=== PATIENT | male | born 1940 | race Caucasian/White ===

== ENCOUNTER 2020-05-31 10:30 | Inpatient (IN) | payer OTHER ==
[2020-05-31] MEDS ORDERED: ONDANSETRON 4 MG/2 ML VIAL ONE ×2 (14:28→16:38)
[2020-05-31] MEDS ORDERED: NA CHLORIDE 0.9% 500 ML ONE (14:28)
[2020-05-31] MEDS ORDERED: MORPHINE 2 MG/ML SYR ONE ×2 (14:28→16:38)
[2020-05-31] MEDS ORDERED: FAMOTIDINE 20 MG/2 ML VIAL IV ONE (14:29)
[2020-05-31 14:31] LABS: Absolute Lymphocytes (CBC) 0.9 K/uL (0.7-4.9); Basophils % 0.2 % (0-1.3); Hematocrit 45.4 % (39.6-49.0); Lymphocytes % 11.7 % (15.3-44.8); MPV 7.8 fL (7.6-11.3); RBC Red Blood Cell Count 5.46 M/uL (4.33-5.43)
[2020-05-31 14:50] LABS: Albumin 4.3 g/dL (3.4-5.0); Bilirubin Direct 0.2 mg/dL (0-0.2); Bilirubin Total 0.7 mg/dL (0.2-1.0); Potassium 3.6 mmol/L (3.5-5.1); Protein, Total 8.2 g/dL (6.4-8.2)
--- NOTE | 2020-05-31 15:17 | RAD REPORT ---
EXAM DESCRIPTION: RAD - Chest Single View - 05/31/2020 2:39 pm CLINICAL HISTORY: ABDOMINAL DISTENTION Chest pain. COMPARISON: CHEST PA AND LAT 2 VIEW dated 09/20/2006 FINDINGS: Portable technique limits examination quality. The lungs are grossly clear. The heart is normal in size. Old left posterior rib fractures. IMPRESSION: No acute intrathoracic process suspected.
--- NOTE | 2020-05-31 15:46 | RAD REPORT ---
EXAM DESCRIPTION: CTAbdomen Pelvis W Contrast - 05/31/2020 3:30 pm CLINICAL HISTORY: Abdominal pain. Abd pain;Abdominal distention COMPARISON: No comparisons TECHNIQUE: Biphasic CT imaging of the abdomen and pelvis was performed with 100 ml non-ionic IV cont rast. All CT scans are performed using dose optimization technique as appropriate and may include automated exposure control or mA/KV adjustment according to patient size. FINDINGS: Mild linear subsegmental atelectasis is seen in both lung bases posteriorly. The liver contains a small cyst in the left lobe. No aggressive liver lesion or biliary dilatation. T he spleen, pancreas, adrenal glands are within normal limits. Small renal calculi are present bilater ally, largest in the inferior right kidney measuring 9 mm. Several mildly dilated small bowel loops are present in the right lower abdomen. The most dilated loo p of small bowel measures 5.5 cm in dimension. There is mild edema seen within the small bowel mesent farhana. Appendectomy suspected. Small volume of free fluid is seen in the pelvis. No free air or abscess . No evidence of significant lymphadenopathy. No suspicious bony findings. IMPRESSION: Multiple fluid-filled and mildly dilated small bowel loops are present. This may be rela silvana to infectious/enteritis, however early bowel obstruction cannot be ruled out. Suggest follow-up radiographs in 24-48 hours. Nephrolithiasis bilaterally without hydronephrosis.
--- NOTE | 2020-05-31 16:06 | EDPHYS ---
Physician Documentation [facility] Name: Benji Machuca Sr Age: 79 yrs Sex: Male : 1940 Arrival Date: 05/31/2020 Time: 10:33 Bed 2 Private MD: Jose M Bauer HPI: 05/31 13:55 This 79 yrs old Male presents to ER via Ambulatory with complaints of cp Abdominal Pain. 13:55 The patient presents with abdominal pain that is diffuse, abdominal distention that is cp diffuse. Onset: The symptoms/episode began/occurred gradually. Associated signs and symptoms: Pertinent positives: anorexia, constipation, nausea, vomiting, Pertinent negatives: chest pain, diarrhea, fever, testicular pain, vomiting blood. 13:55 The symptoms do not radiate. cp 13:55 The symptoms are described as steady. cp Historical: - Allergies: 10:45 No Known Allergies; ss - PMHx: 10:45 Hypertension; GERD; Anxiety; CA outside the kidneys; ss - PSHx: 10:45 abd sx-piece of intestine removed; Appendectomy; ss - Immunization history:: Client reports receiving the 2nd dose of the Covid vaccine, Flu vaccine is up to date. - Social history:: Smoking status: Patient denies any tobacco usage or history of. ROS: 13:57 Constitutional: Negative for body aches, chills, fever. cp 13:57 Abdomen/GI: Positive for abdominal pain, nausea and vomiting, constipation, abdominal distension, anorexia. Exam: 14:05 Constitutional: The patient appears in no acute distress, alert, awake, cp non-diaphoretic, non-toxic, well developed, well nourished. 14:05 Head/Face: Normocephalic, atraumatic. cp 14:05 Eyes: Periorbital structures: appear normal, Conjunctiva: normal, no exudate, no injection, Sclera: no appreciated abnormality, Lids and lashes: appear normal, bilaterally. 14:05 ENT: External ear(s): are unremarkable, Nose: is normal, Mouth: Lips: moist, Posterior pharynx: Airway: no evidence of obstruction, patent. 14:05 Neck: ROM/movement: is normal, is supple, without pain, no range of motions limitations. 14:05 Chest/axilla: Inspection: normal, Palpation: is normal, no crepitus, no tenderness. 14:05 Cardiovascular: Rate: normal, Rhythm: regular, Edema: is not appreciated, JVD: is not appreciated. 14:05 Respiratory: the patient does not display signs of respiratory distress, Respirations: normal, no use of accessory muscles, no retractions, labored breathing, is not present, Breath sounds: are clear throughout, no decreased breath sounds. 14:05 Abdomen/GI: Inspection: scar(s), are noted in the mid line mid and lower abdomen, Bowel sounds: active, all quadrants, Palpation: soft, in all quadrants, moderate abdominal tenderness, in all quadrants, rebound tenderness, is not appreciated, involuntary guarding, is not appreciated, Hernia: not appreciated. 14:05 Skin: no rash present. Vital Signs: 10:40 BP 138 / 79; Pulse 76; Resp 17; Temp 97.2; Pulse Ox 97% on R/A; Weight 86.18 kg; Height ss 5 ft. 11 in. (180.34 cm); Pain 10/10; 16:49 BP 135 / 84; Pulse 81; Resp 16; Pulse Ox 98% on R/A; mt 17:00 BP 136 / 86; Pulse 80; Resp 17; Pulse Ox 97% on R/A; hb 18:00 BP 149 / 88; Pulse 84; Resp 16; Pulse Ox 96% ; sv 19:29 BP 114 / 66; Pulse 85; Resp 18; Pulse Ox 100% on R/A; mg2 10:40 Body Mass Index 26.50 (86.18 kg, 180.34 cm) ss MDM: 05/30 14:00 Differential diagnosis: bowel obstruction, cholecystitis, Cholelithiasis, non-specific cp abd pain, pancreatitis. 05/31 13:36 Patient medically screened. cp 16:01 Data reviewed: vital signs, nurses notes, lab test result(s), radiologic studies, CT cp scan, plain films. Physician consultation: Holden Riojas MD was called at 15:45, was contacted at 15:45, regarding consult, patient's condition. 16:03 Physician consultation: Andi Alvarado was contacted at 16:03, regarding admission, to the medical/surgical unit. patient's condition, and will see patient in ED. 05/31 13:47 Order name: Basic Metabolic Panel; Complete Time: 14:57 cp 05/31 15:58 Interpretation: Normal except: GLUC 123; GFR 66; Reviewed. 05/31 13:47 Order name: CBC with Diff; Complete Time: 14:38 05/31 14:38 Interpretation: Normal except: RBC 5.46; HANS% 78.9; LYM% 11.7. 05/31 13:47 Order name: Hepatic Function; Complete Time: 14:57 05/31 14:58 Interpretation: Normal except: AST 11; GLOB 3.9. 05/31 13:47 Order name: Lipase; Complete Time: 14:57 05/31 13:47 Order name: Urine Microscopic Only 05/31 16:25 Order name: COVID-19 : Document "Date of Symptom Onset" if Symptomatic. 05/31 13:47 Order name: CT Abd/Pelvis - PO and IV Contrast; Complete Time: 15:47 05/31 13:56 Order name: XRAY Chest (1 view); Complete Time: 15:47 05/31 18:21 Order name: SARS-COV-2 RT PCR EDSD 05/31 13:47 Order name: IV Saline Lock; Complete Time: 16:31 05/31 13:47 Order name: Labs collected and sent; Complete Time: 16:31 05/31 16:00 Order name: NG Tube; Complete Time: 18:09 cp Administered Medications: 14:31 Drug: morphine 2 mg Route: IVP; Site: right antecubital; hb 14:31 Drug: NS 0.9% 500 ml Route: IV; Rate: 500 ml/hr; Site: right antecubital; hb 14:32 Drug: Zofran (Ondansetron) 4 mg Route: IVP; Site: right antecubital; hb 14:32 Drug: Pepcid (famotidine) 20 mg Route: IVP; Site: right antecubital; hb 16:29 Drug: metroNIDAZOLE 500 mg Volume: 100 ml; Route: IVPB; Infused Over: 30 mins; Site: hb right antecubital; 16:29 Drug: Zofran (Ondansetron) 4 mg Route: IVP; Site: right antecubital; hb 16:30 Drug: morphine 2 mg Route: IVP; Site: right antecubital; hb 16:30 Drug: LevaQUIN (levofloxacin) 750 mg Volume: 150 ml; Route: IVPB; Infused Over: 90 hb mins; Site: right antecubital; 18:08 Drug: morphine 4 mg Route: IVP; Site: right antecubital; hb Disposition: 16:19 Chart complete. cp 06/01 08:04 Co-signature as Attending Physician, Jose M Garland MD I agree with the assessment and sherlyn plan of care. Disposition: 05/31/20 16:06 Hospitalization ordered by Andi Alvarado for Inpatient Admission. Preliminary diagnosis is Ileus, unspecified. - Bed requested for Telemetry/MedSurg (Inpatient). - Status is Inpatient Admission. mg2 - Condition is Stable. - Problem is new. - Symptoms have improved. Signatures: Dispatcher [employer] EDSD Edwige Nicole RN RN dw Anderson, Corey, MD MD cha Smirch, Shelby RN RN Jose M Mora PA PA cp Loreta Bey RN RN Zachariah Thompson RN RN mg2 Corrections: (The following items were deleted from the chart) 05/31 15:58 14:58 Normal except: GLUC 123; GFR 66. cp cp 17:40 16:26 CORONAVIRUS ordered. EDSD EDMS 19:27 16:06 Hospitalization Ordered by Andi Alvarado for Inpatient Admission. Preliminary dw diagnosis is Ileus, unspecified. Bed requested for Telemetry/MedSurg (Inpatient). Status is Inpatient Admission. Condition is Stable. Problem is new. Symptoms have improved. cp 19:50 19:27 05/31/2020 16:06 Hospitalization Ordered by Andi Alvarado for Inpatient mg2 Admission. Preliminary diagnosis is Ileus, unspecified. Bed requested for Telemetry/MedSurg (Inpatient). Status is Inpatient Admission. Condition is Stable. Problem is new. Symptoms have improved. dw
--- NOTE | 2020-05-31 16:06 | ER ---
Nurse's Notes [facility] Name: Benji Machuca Sr Age: 79 yrs Sex: Male : 1940 Arrival Date: 05/31/2020 Time: 10:33 Bed 2 Private MD: Diagnosis: Ileus, unspecified Presentation: 05/31 10:40 Chief complaint: Patient states: Generalized abd pain with bloating for 2 days. + ss nausea. No fever. Normal BM per patient. Coronavirus screen: Client denies travel out of the [place] in the last 14 days. nausea. Ebola Screen: Patient denies travel to an Ebola-affected area in the 21 days before illness onset. Initial Sepsis Screen: Does the patient meet any 2 criteria? No. Patient's initial sepsis screen is negative. Does the patient have a suspected source of infection? Yes: Acute abdominal pain. Risk Assessment: Do you want to hurt yourself or someone else? Patient reports no desire to harm self or others. Onset of symptoms was May 29, 2020. 10:40 Method Of Arrival: Ambulatory ss 10:40 Acuity: SALOMÓN 3 ss Historical: - Allergies: 10:45 No Known Allergies; ss - PMHx: 10:45 Hypertension; GERD; Anxiety; CA outside the kidneys; ss - PSHx: 10:45 abd sx-piece of intestine removed; Appendectomy; ss - Immunization history:: Client reports receiving the 2nd dose of the Covid vaccine, Flu vaccine is up to date. - Social history:: Smoking status: Patient denies any tobacco usage or history of. Screenin:10 Abuse screen: Denies threats or abuse. Denies injuries from another. Nutritional hb screening: No deficits noted. Tuberculosis screening: No symptoms or risk factors identified. Fall Risk None identified. Assessment: 14:00 General: Appears in no apparent distress. uncomfortable. Pain: Pain currently is 7 out hb of 10 on a pain scale. Neuro: Level of Consciousness is awake, alert, obeys commands, Oriented to person, place, time, situation. Cardiovascular: Patient's skin is warm and dry. Respiratory: Respiratory effort is even, unlabored, Respiratory pattern is regular, symmetrical. GI: Reports lower abdominal pain, upper abdominal pain, nausea, vomiting. : No signs and/or symptoms were reported regarding the genitourinary system. EENT: No signs and/or symptoms were reported regarding the EENT system. Derm: Skin is pink, warm \T\ dry. Musculoskeletal: No signs and/or symptoms reported regarding the musculoskeletal system. 15:00 Reassessment: Patient appears in no apparent distress at this time. Patient and/or hb family updated on plan of care and expected duration. Pain level reassessed. Patient is alert, oriented x 3, equal unlabored respirations, skin warm/dry/pink. 16:00 Reassessment: Patient appears in no apparent distress at this time. Patient and/or hb family updated on plan of care and expected duration. Pain level reassessed. Patient is alert, oriented x 3, equal unlabored respirations, skin warm/dry/pink. 17:00 Reassessment: Patient appears in no apparent distress at this time. Patient and/or hb family updated on plan of care and expected duration. Pain level reassessed. Patient is alert, oriented x 3, equal unlabored respirations, skin warm/dry/pink. 18:09 Reassessment: Patient appears in no apparent distress at this time. Patient and/or hb family updated on plan of care and expected duration. Pain level reassessed. Patient is alert, oriented x 3, equal unlabored respirations, skin warm/dry/pink. 18:55 Reassessment: Patient appears in no apparent distress at this time. Patient and/or hb family updated on plan of care and expected duration. Pain level reassessed. Patient is alert, oriented x 3, equal unlabored respirations, skin warm/dry/pink. Vital Signs: 10:40 BP 138 / 79; Pulse 76; Resp 17; Temp 97.2; Pulse Ox 97% on R/A; Weight 86.18 kg; Height ss 5 ft. 11 in. (180.34 cm); Pain 10/10; 16:49 BP 135 / 84; Pulse 81; Resp 16; Pulse Ox 98% on R/A; mt 17:00 BP 136 / 86; Pulse 80; Resp 17; Pulse Ox 97% on R/A; hb 18:00 BP 149 / 88; Pulse 84; Resp 16; Pulse Ox 96% ; sv 19:29 BP 114 / 66; Pulse 85; Resp 18; Pulse Ox 100% on R/A; mg2 10:40 Body Mass Index 26.50 (86.18 kg, 180.34 cm) ED Course: 10:33 Patient arrived in ED. ds1 10:40 Arm band placed on. ss 10:43 Triage completed. ss 13:34 Jose M Mora PA is PHCP. cp 13:34 Jose M Galrand MD is Attending Physician. cp 14:18 Inserted saline lock: 20 gauge in right antecubital area, using aseptic technique. hb Blood collected. 14:31 Loreta Bey, RN is Primary Nurse. hb 14:39 XRAY Chest (1 view) In Process Unspecified. EDMS 15:30 CT Abd/Pelvis - PO and IV Contrast In Process Unspecified. EDMS 16:05 Andi Alvarado is Hospitalizing Provider. cp 18:00 NGT: inserted 16 Fr. via right nare. verified placement of air over stomach, verified hb return of gastric contents, to intermittent suction. Returned gastric contents. Amount of gastric contents removed by suction 700ml. Patient tolerated well. 19:37 Patient has correct armband on for positive identification. Door closed. Warm blanket mg2 given. 19:37 No provider procedures requiring assistance completed. Patient admitted, IV remains in mg2 place. Administered Medications: 14:31 Drug: morphine 2 mg Route: IVP; Site: right antecubital; hb 14:31 Drug: NS 0.9% 500 ml Route: IV; Rate: 500 ml/hr; Site: right antecubital; hb 14:32 Drug: Zofran (Ondansetron) 4 mg Route: IVP; Site: right antecubital; hb 14:32 Drug: Pepcid (famotidine) 20 mg Route: IVP; Site: right antecubital; hb 16:29 Drug: metroNIDAZOLE 500 mg Volume: 100 ml; Route: IVPB; Infused Over: 30 mins; Site: hb right antecubital; 16:29 Drug: Zofran (Ondansetron) 4 mg Route: IVP; Site: right antecubital; hb 16:30 Drug: morphine 2 mg Route: IVP; Site: right antecubital; hb 16:30 Drug: LevaQUIN (levofloxacin) 750 mg Volume: 150 ml; Route: IVPB; Infused Over: 90 hb mins; Site: right antecubital; 18:08 Drug: morphine 4 mg Route: IVP; Site: right antecubital; hb Outcome: 16:06 Decision to Hospitalize by Provider. cp 19:37 Admitted to Med/surg accompanied by nurse, via wheelchair, room 229, with chart, Report mg2 called to GEORGETTE Cosby 19:37 Condition: stable 19:37 Instructed on the need for admit, Demonstrated understanding of instructions. 19:50 Patient left the ED. mg2 Signatures: Dispatcher [employer] EDOlivia Church, GEORGETTE PALOMINO Lisandra Rodriguez ds1 Larisa Singh RN RN ss Jose M Mora, ORQUIDEA PA cp Loreta Bey, RN RN Ricarda Wong mt, Michele, RN RN mg2
[2020-05-31] MEDS ORDERED: Levofloxacin 750mg IV 750 MG/150 ML BAG IV ONE (16:38)
[2020-05-31] MEDS ORDERED: METRONIDAZOLE 500mg IVPB 500 MG/100 ML BAG IV ONE (16:38)
--- NOTE | 2020-05-31 17:33 | P.HP ---
Certification for Inpatient Patient admitted to: Inpatient With expected LOS: >2 Midnights Practitioner: I am a practitioner with admitting privileges, knowledge of patient current condition, hospital course, and medical plan of care. Services: Services provided to patient in accordance with Admission requirements found in Title 42 Section 412.3 of the Code of Federal Regulations Patient History Date of Service: 05/31/20 Reason for admission: Abdominal pain and bloating History of Present Illness: 79-year-old gentleman with a history multiple abdominal surgeries in the past, history small bowel obstruction with resection and end-to-end anastomosis, history of nephrectomy for renal cancer presented to the emergency department with a complaint of abdominal pain and bloating of 2 days duration. Patient reports worsening symptoms since last night, not tolerating food and drink. He reports a few episodes of vomiting. He vomited in the ED. CT abdomen in the ED reports multiple fluid-filled and mildly dilated small bowel loops indicative of early bowel obstruction. General surgery Dr. Riojas was contacted who recommended NGT insertion and a consult from him. Patient admitted for further management. Allergies No Known Allergies Allergy (Verified 01/03/12 09:06) - Past Medical/Surgical History -: Hypertension -: GERD -: History of renal cancer -: Small-bowel resection -: Cancer resection from the right kidney. - Family History Father -: Hypertension - Social History Smoking Status: Never smoker Alcohol use: Yes CD- Drugs: No Place of Residence: Home Review of Systems Other: Patient denies any fever. He reports diarrhea a few days before onset of his abdominal pain. Except as documented, all other systems reviewed and negative. Physical Examination - Physical Exam General: Alert, In no apparent distress, Oriented x3 HEENT: Atraumatic, Normocephalic, PERRLA, Mucous membr. moist/pink, EOMI, Sclerae nonicteric Neck: Supple, JVD not distended Respiratory: Clear to auscultation bilaterally, Normal air movement Cardiovascular: No edema, Regular rate/rhythm, Normal S1 S2, No murmurs Capillary refill: <2 Seconds Gastrointestinal: Normal bowel sounds, Soft and benign, No tenderness, Distended (Mildly distended) Musculoskeletal: No swelling, No tenderness Integumentary: No rashes, No erythema Neurological: Normal speech, Normal strength at 5/5 x4 extr, Cranial nerves 3-12 intact - Studies Laboratory Data (last 24 hrs) 05/31/20 14:22: WBC 7.60, Hgb 15.0, Hct 45.4, Plt Count 195 05/31/20 14:22: Sodium 139, Potassium 3.6, BUN 15, Creatinine 1.08, Glucose 123 H, Total Bilirubin 0.7, AST 11 L, ALT 23, Alkaline Phosphatase 87, Lipase 79 Assessment and Plan - Problems (Diagnosis) (1) Partial small bowel obstruction Current Visit: Yes Status: Acute (2) History of bowel resection Current Visit: Yes Status: Acute (3) Hypertension Current Visit: Yes Status: Acute (4) GERD (gastroesophageal reflux disease) Current Visit: Yes Status: Acute - Plan Admit to the medical floor. Supportive measures with IV normal saline. NG-tube to suction Consult general surgeon-Dr. Riojas is aware. Empiric IV Zosyn Serial abdominal examination. Monitor renal function and CBC. Pain management and antiemetics as needed. - Advance Directives Does patient have a Living Will: No Does patient have a Durable POA for Healthcare: No
[2020-05-31] MEDS ORDERED: MORPHINE 4 MG/ML SYR ONE (18:24)
[2020-05-31] MEDS ORDERED: ONDANSETRON 4 MG/2 ML VIAL IV PRN (20:03)
[2020-05-31] MEDS ORDERED: PIPER/TAZO/NS 3.375gm 3.375 GM/100 ML BAG IVPB ONE (20:15)
[2020-05-31] MEDS: D5 0.9 NS 1,000 ML IV SCH (20:32)
[2020-05-31] MEDS ORDERED: NA CHLORIDE 0.9% 100 ML ONE (22:33)
[2020-05-31] MEDS ORDERED: PIPERACIL/TAZO 3.375 GM VIAL IV ONE (22:33)
[2020-05-31] MEDS ORDERED: PIPER/TAZO/NS 3.375gm 6.750 GM/200 ML BAG ONE (22:38)
[2020-06-01] MEDS: HEPARIN 5000 UNIT/ML 1 ML VIAL SQ SCH ×3 (00:52→16:18)
[2020-06-01] MEDS: PIPER/TAZO/NS 3.375gm 3.375 GM/100 ML BAG IVPB SCH ×4 (00:53→17:00)
[2020-06-01 01:50] VITALS: BMI 26.4
[2020-06-01] MEDS ORDERED: PIPERACIL/TAZO 3.375 GM VIAL IV ONE (05:24)
[2020-06-01] MEDS ORDERED: NA CHLORIDE 0.9% 100 ML ONE (05:25)
[2020-06-01 05:57] LABS: Absolute Lymphocytes (CBC) 0.9 K/uL (0.7-4.9); Basophils % 0.3 % (0-1.3); Hematocrit 40.5 % (39.6-49.0); Lymphocytes % 18.3 % (15.3-44.8)
[2020-06-01 06:26] LABS: Albumin 3.4 g/dL (3.4-5.0); Bilirubin Total 0.8 mg/dL (0.2-1.0); Magnesium 2.1 mg/dL (1.8-2.4); Potassium 3.6 mmol/L (3.5-5.1); Protein, Total 6.7 g/dL (6.4-8.2); Thyroid Stimulating Hormone 1.01 uIU/mL (0.360-3.740)
[2020-06-01] MEDS ORDERED: POTASSIUM PHOS 30 MM in NS 500 ML IV ONE (08:00)
[2020-06-01] MEDS: D5 0.9 NS 1,000 ML IV SCH ×2 (08:59→15:41)
[2020-06-01 09:02] LABS: Blood Morphology Comment NOT SEEN (NOT SEEN); Platelet Estimate ADEQ
--- NOTE | 2020-06-01 12:43 | CON ---
Date of Consultation: 06/01/2020 Brief History Of Present Illness: The patient is an 79-year-old gentleman with history of multiple abdominal surgeries in the past including renal cell cancer status post partial nephrectomy and small bowel obstructions before in the past requiring adhesiolysis and a small bowel resection. He presented to the emergency room with complaints of abdominal pain and bloating for approximately 2 days' duration, similar to his bowel obstructions in the past. He reported the symptoms got progressively worse, he was unable to tolerate p.o., he had decreased bowel function and as such, he was brought to the hospital for the above stated complaints. Past Medical History: Significant for hypertension, GERD, renal cell cancer, small bowel obstructions and right renal cell cancer. Past Surgical History: Includes a partial nephrectomy on the right, small bowel resection for obstruction, appendectomy, partial colectomy for appendicitis in the past. Social History: He denies smoking. He drinks alcohol recreationally. Denies recreational drug use. Allergies: NO KNOWN DRUG ALLERGIES. Home Medications: Included BuSpar, gabapentin, Zestril, meloxicam, Naprosyn, omeprazole, and trazodone. Review of Systems: Ten-point review of systems other than HPI, denies. Physical Examination: Vital Signs: At the time of my examination; his blood pressure was 129/67, pulse 73, respiratory rate 18, temperature is 97.2, SpO2 95% on room air. General: He is awake, alert, and oriented. The patient was ambulatory during my conversation with him in the room. Psychiatric: He is appropriate. Conversive. Has good insight to his past medical history. HEENT: He is normocephalic. His sclerae were anicteric. His mucous membranes were somewhat dry. He has NG tube in place. Neck: Supple without JVD. Chest: Normal expansion and excursion. Cardiovascular: Regular rate and rhythm. Pulmonary: Clear to auscultation bilaterally. Abdomen: Soft with mild global tenderness to palpation. He has a midline incisional hernia in the periumbilical region. He also has abdominal wall laxity on the right side where as previous nephrectomy scar is. He has no rebound, no guarding, no focal peritonitis. Extremities: His extremities have no clubbing, cyanosis, edema. Skin: Warm and dry. Laboratory Data: Reveals a white blood count of 4.8, hemoglobin 13.3, hematocrit of 40.5, platelet count is 168. His neutrophils were 63%. His sodium is 141, potassium 3.6, chloride 109, carbon dioxide 27, BUN 13, creatinine 1.07, glucose is 107, calcium 8.7, phosphorus 2.0, magnesium 2.1. His total bilirubin is 0.8, direct bilirubin 0.2, AST 11, ALT 20, alkaline phosphatase 68. His lipase is 76 on admission. He had imaging performed, which included a CT scan of the abdomen and pelvis, which was officially read as multiple fluid-filled and mildly dilated small bowel loops are present. This may be related to infectious enteritis; however, early bowel obstruction cannot be ruled out. Nephrolithiasis bilaterally without hydronephrosis, liver contains multiple cysts, spleen and pancreas normal limits. Small renal calculi present bilaterally, largest inferior right kidney measured 9 mm, several mildly dilated small bowel loops are present in the right lower abdomen. The most dilated loop of small bowel measures 5.5 cm in dimension. There was mild edema within the small bowel mesentery. Appendectomy, suspected small volume of free fluid seen in the pelvis. No free air abscess. No evidence of significant lymphadenopathy. Assessment And Plan: This is an 79-year-old male, who presents with signs and symptoms of an enteritis versus early small bowel obstruction. 1. IV fluid hydration. 2. Serial abdominal exams. 3. NG tube decompression. 4. I do not find that the patient has any active need for emergency surgery at this point and as such, I recommend continued medical management per Dr. Alvarado, electrolyte correction, and I will evaluate the patient with serial exams. Should he have non-progression of his symptoms, we will consider surgery, but we will continue to re-image and do serial exams prior to any surgical intervention. I have explained the risks, benefits, and alternatives of above stated plan. The patient agrees to proceed as indicated. Thank you for this interesting consult. PAOLA/MADDISON Voice ID: [id number] Report ID: [id number] NAREN
--- NOTE | 2020-06-01 14:47 | P.PN ---
Subjective Date of Service: 06/01/20 Chief Complaint: Abdominal pain and bloating Patient states he feels better today. He stated he passed flatus. No bowel movement. Noted about 700 mL of fluid was drained when the NG tube was 1st inserted yesterday. Not much output overnight. She denies any abdominal pain. He is ambulating in the room without pain. Physical Examination - Vital Signs Temperature: 97.3 F Blood Pressure: 133/63 Pulse: 66 Respirations: 18 Pulse Ox (%): 95 - Physical Exam General: Alert, In no apparent distress, Oriented x3 HEENT: Other (NG-tube to suction) Neck: Supple, JVD not distended Respiratory: Clear to auscultation bilaterally, Normal air movement Cardiovascular: No edema, Regular rate/rhythm, Normal S1 S2 Gastrointestinal: Soft and benign, No tenderness, Hyperactive, Distended Musculoskeletal: No swelling, No tenderness Integumentary: No rashes, No erythema Neurological: Normal speech, Normal strength at 5/5 x4 extr, Cranial nerves 3-12 intact - Studies Laboratory Data (last 24 hrs) 05/31/20 14:22: Sodium 139, Potassium 3.6, BUN 15, Creatinine 1.08, Glucose 123 H, Total Bilirubin 0.7, AST 11 L, ALT 23, Alkaline Phosphatase 87, Lipase 79 Assessment And Plan - Current Problems (Diagnosis) (1) Partial small bowel obstruction Current Visit: Yes Status: Acute (2) History of bowel resection Current Visit: Yes Status: Acute (3) Hypertension Current Visit: Yes Status: Acute (4) GERD (gastroesophageal reflux disease) Current Visit: Yes Status: Acute - Plan Continue supportive measures with IV normal saline. Continue NG-tube to suction General surgeon-Dr. Riojas input appreciated. Medical management for now Continue empiric IV Zosyn Serial abdominal examination and imaging. Monitor renal function and optimize electrolytes. Pain management and antiemetics as needed. Activity as tolerated. Keep NPO
[2020-06-01] MEDS: MORPHINE 2 MG/ML SYR IV PRN ×2 (16:40→21:15)
[2020-06-01] MEDS ORDERED: LORazepam 2 MG/ML VIAL IV ONE (22:07)
[2020-06-02] MEDS: D5 0.9 NS 1,000 ML IV SCH ×3 (01:03→22:22)
[2020-06-02] MEDS: HEPARIN 5000 UNIT/ML 1 ML VIAL SQ SCH ×3 (01:09→16:34)
[2020-06-02] MEDS: MORPHINE 2 MG/ML SYR IV PRN ×3 (04:01→11:46)
[2020-06-02 05:19] LABS: Absolute Lymphocytes (CBC) 1.1 K/uL (0.7-4.9); Basophils % 0.5 % (0-1.3); Hematocrit 37.9 % (39.6-49.0); Lymphocytes % 20.9 % (15.3-44.8); MPV 7.8 fL (7.6-11.3); RBC Red Blood Cell Count 4.59 M/uL (4.33-5.43)
[2020-06-02 05:28] LABS: Phosphorus 1.8 mg/dL (2.5-4.9); Potassium 3.4 mmol/L (3.5-5.1)
[2020-06-02] MEDS: PIPER/TAZO/NS 3.375gm 3.375 GM/100 ML BAG IVPB SCH ×4 (05:44→16:30)
[2020-06-02] MEDS ORDERED: KCL 20 MEQ/100 mL IVPB 20 MEQ/100 ML BAG IV SCH ×2 (07:00→08:00)
[2020-06-02] MEDS ORDERED: POTASSIUM PHOS IN 0.9 % NACL 15 MMOL/250 ML BAG IV ONE (07:30)
--- NOTE | 2020-06-02 10:27 | P.PN ---
Subjective Date of Service: 06/02/20 Chief Complaint: Abdominal pain and bloating Subjective: Improving (passing more gas, no pain, tenderness minimal.) Physical Examination - Vital Signs Temperature: 97.0 F Blood Pressure: 166/81 Pulse: 64 Respirations: 16 Pulse Ox (%): 96 - Physical Exam General: Alert, In no apparent distress, Oriented x3, Cooperative Neck: Supple Respiratory: Normal air movement Gastrointestinal: Soft and benign, Non-distended, No ascites, No tenderness, No masses, No rebound, No guarding, Other (ventral incisional hernias noted) Assessment And Plan - Current Problems (Diagnosis) (1) Partial small bowel obstruction Current Visit: Yes Status: Acute Plan: - DC NGT - start sips of clears - ambulate with assist - serial exams - continue medical management
--- NOTE | 2020-06-02 15:38 | P.PN ---
Subjective Date of Service: 06/02/20 Chief Complaint: Abdominal pain and bloating NG tube is out. Patient denies any symptoms He stated he has been passing flatus. He reports bowel movement yesterday. He is ambulating in the room without pain. Physical Examination - Vital Signs Temperature: 97.2 F Blood Pressure: 144/65 Pulse: 67 Respirations: 17 Pulse Ox (%): 96 - Physical Exam General: Alert, In no apparent distress HEENT: Mucous membr. moist/pink Neck: JVD not distended Respiratory: Clear to auscultation bilaterally, Normal air movement Cardiovascular: No edema, Regular rate/rhythm, Normal S1 S2 Gastrointestinal: Normal bowel sounds, Soft and benign, Non-distended, No tenderness Musculoskeletal: No swelling, No tenderness Integumentary: No rashes, No erythema Neurological: Normal speech, Normal strength at 5/5 x4 extr Assessment And Plan - Current Problems (Diagnosis) (1) Partial small bowel obstruction Current Visit: Yes Status: Acute (2) History of bowel resection Current Visit: Yes Status: Acute (3) Hypertension Current Visit: Yes Status: Acute (4) GERD (gastroesophageal reflux disease) Current Visit: Yes Status: Acute - Plan Patient feeling better NG tube is removed per Dr. Riojas. Patient started on sips Continue empiric IV Zosyn Serial abdominal examination. Monitor renal function and optimize electrolytes. Pain management and antiemetics as needed. Activity as tolerated.
[2020-06-02] MEDS ORDERED: POTASSIUM 25 MEQ EFFERV TAB PO ONE (21:57)
[2020-06-02] MEDS ORDERED: MELATONIN 5 MG TABLET PO PRN (23:04)
[2020-06-03] MEDS: HEPARIN 5000 UNIT/ML 1 ML VIAL SQ SCH ×3 (01:22→16:01)
[2020-06-03] MEDS: PIPER/TAZO/NS 3.375gm 3.375 GM/100 ML BAG IVPB SCH ×3 (01:22→17:33)
[2020-06-03 05:52] LABS: Magnesium 2.2 mg/dL (1.8-2.4); Phosphorus 1.8 mg/dL (2.5-4.9); Potassium 3.5 mmol/L (3.5-5.1)
[2020-06-03] MEDS ORDERED: POTASSIUM PHOS IN 0.9 % NACL 15 MMOL/250 ML BAG IV ONE (09:00)
--- NOTE | 2020-06-03 09:14 | P.PN ---
Subjective Date of Service: 06/03/20 Chief Complaint: Abdominal pain and bloating Subjective: Improving (Patient tolerated clears, having bowel movements, ambulatory) Physical Examination - Vital Signs Temperature: 97.9 F Blood Pressure: 153/78 Pulse: 64 Respirations: 17 Pulse Ox (%): 94 - Physical Exam General: Alert, In no apparent distress, Cooperative Respiratory: Normal air movement Gastrointestinal: Soft and benign, No tenderness, No masses, No rebound, No guarding Assessment And Plan - Current Problems (Diagnosis) (1) Partial small bowel obstruction Current Visit: Yes Status: Acute Plan: - advance to full liquid diet now, consider soft today, if tolerated can DC from surgical standpoint - ambulate with assist - serial exams - continue medical management
[2020-06-03] MEDS: D5 0.9 NS 1,000 ML IV SCH (09:55)
[2020-06-03 10:14] VITALS: O2SAT 96
[2020-06-03 16:33] VITALS: BP 165/85; TEMP 97.2
--- NOTE | 2020-06-04 22:01 | P.DS ---
Admission Date: 05/31/20 Discharge Date: 06/03/20 Disposition: ROUTINE DISCHARGE Discharge Condition: GOOD Reason for Admission: Abdominal pain and bloating Consultations: General Surgery - Dr. Riojas Procedures: CXR (05/31): No acute intrathoracic process suspected. CT Abd/ Pelvis (05/31): Multiple fluid-filled and mildly dilated small bowel loops are present. This may be related to infectious/enteritis, however early bowel obstruction cannot be ruled out. Nephrolithiasis bilaterally without hydronephrosis. Problem List: partial SBO h/o bowel resection HTN GERD Brief History of Present Illness: 79-year-old gentleman with a history multiple abdominal surgeries in the past, history small bowel obstruction with resection and end-to-end anastomosis, history of nephrectomy for renal cancer presented to the emergency department with a complaint of abdominal pain and bloating of 2 days duration. Patient reports worsening symptoms since last night, not tolerating food and drink. He reports a few episodes of vomiting. He vomited in the ED. CT abdomen in the ED reports multiple fluid-filled and mildly dilated small bowel loops indicative of early bowel obstruction. General surgery Dr. Riojas was contacted who recommended NGT insertion and a consult from him. Patient admitted for further management. Hospital Course: Patient's partial SBO was medically managed and his diet was slowly advanced as tolerated. General surgery was consulted and patient had eventual resolution of his symptoms - tolerating GI soft diet without nausea/vomiting, and had +BM. He was discharged home to resume home medications as previously prescribed. Follow up with PCP in 3-5 days, and follow up with general surgery in ~2weeks. Vital Signs/Physical Exam: Physical Exam General: Alert, In no apparent distress HEENT: Mucous membr. moist/pink Respiratory: Clear to auscultation bilaterally, Normal air movement Cardiovascular: No edema, Regular rate/rhythm, Normal S1 S2 Gastrointestinal: Normal bowel sounds, Soft and benign, Non-distended, No tenderness Musculoskeletal: No swelling, No tenderness Integumentary: No rashes, No erythema Temp Pulse Resp BP Pulse Ox 97.2 F 57 18 165/85 H 97 06/03/20 16:00 06/03/20 16:00 06/03/20 16:00 06/03/20 16:00 06/03/20 16:00 Laboratory Data at Discharge: WBC 5.20 K/uL (4.3-10.9) 06/02/20 04:29 Hgb 12.8 g/dL (13.6-17.9) L 06/02/20 04:29 Hct 37.9 % (39.6-49.0) L 06/02/20 04:29 Plt Count 162 K/uL (152-406) 06/02/20 04:29 Sodium 145 mmol/L (136-145) 06/03/20 05:00 Potassium 3.5 mmol/L (3.5-5.1) 06/03/20 05:00 BUN 7 mg/dL (7-18) 06/03/20 05:00 Creatinine 1.08 mg/dL (0.55-1.3) 06/03/20 05:00 Glucose 104 mg/dL (74-106) 06/03/20 05:00 Phosphorus 1.8 mg/dL (2.5-4.9) L 06/03/20 05:00 Magnesium 2.2 mg/dL (1.8-2.4) 06/03/20 05:00 Total Bilirubin 0.8 mg/dL (0.2-1.0) 06/01/20 05:32 AST 11 U/L (15-37) L 06/01/20 05:32 ALT 20 U/L (12-78) 06/01/20 05:32 Alkaline Phosphatase 68 U/L (45-117) 06/01/20 05:32 Lipase 79 U/L (73-393) 05/31/20 14:22 Home Medications: Buspirone HCl [Buspar] 1 tab PO TID PRN 06/01/20 Gabapentin 1 tab PO BID 06/01/20 Lisinopril [Zestril] 1 tab PO DAILY 06/01/20 Meloxicam 1 tab PO DAILY PRN 06/01/20 Naproxen 1 tab PO BID PRN 06/01/20 Omeprazole 1 tab PO DAILY 06/01/20 Trazodone HCl 1 tab PO PRN PRN 06/01/20 Physician Discharge Instructions: You were found to have a bowel obstruction that resolved with bowel rest. Please continue with a bland soft diet for another ~5 days, and slowly advance to a more regular diet. Follow up with your PCP in 3-5 days. Follow up with Dr. Riojas in 1-2 weeks. Diet: Whiteside (soft diet) Activity: Ad holly Followup: Holden Riojas MD [ACTIVE - CAN ADMIT] - (Call to schedule appointment) NONE,NONE [Primary Care Provider] - Time spent managing pt's care (in minutes): 35
== END 2020-06-03 19:10 | disposition home or self-care (01) | DRG 390 ==
LOC: ER 10:30 → ERHOLD 17:39 → 2ND 19:39
PROVIDERS: ADMIT Internal Medicine; ATTEND Hospitalist
DX: K56.600 Partial intestinal obstruction, unspecified as to cause (principal); I10 Essential (primary) hypertension; K21.9 Gastro-esophageal reflux disease without esophagitis; Z90.49 Acquired absence of other specified parts of digestive tract; Z85.528 Personal history of other malignant neoplasm of kidney; Z20.822 Contact with and (suspected) exposure to COVID-19
CPT/HCPCS: 36415; 71045; 74177; 80048; 80053; 80076; 82947; 83690; 83735; 84100; 84132; 84443; 85025; 94760; 96374; 96375; 99285; J1644; J2270; J2405; J2543; J3480; J7040; J7042; Q9967; U0003